=== PATIENT | female | born 1965 | race African-American/Black ===

== ENCOUNTER 2019-05-30 16:31 | Inpatient (IN) | payer BC ==
[2019-05-30 21:43] VITALS: BMI 28.3
--- NOTE | 2019-05-30 22:12 | HP ---
CIWA Score Nausea/Vomitin (w/ some cramping) Muscle Tremors: 4-Moderate,w/Arms Extend Anxiety: 1-Mildly Anxious Agitation: 1-Slight > Activity Paroxysmal Sweats: 3 (Increased facial moisture) Orientation: 0-Oriented Tacttile Disturbances: 0-None Auditory Disturbances: 0-None Visual Disturbances: 0-None Headache: 4-Moderately Severe CIWA-Ar Total Score: 16 - Admission Criteria OASAS Guidelines: Admission for Medically Managed Detox: Requires at least one of the followin. CIWA greater than 12 2. Seizures within the past 24 hours 3. Delirium tremens within the past 24 hours 4. Hallucinations within the past 24 hours 5. Acute intervention needed for co occurring medical disorder 6. Acute intervention needed for co occurring psychiatric disorder 7. Severe withdrawal that cannot be handled at a lower level of care (continued vomiting, continued diarrhea, abnormal vital signs) requiring intravenous medication and/or fluids 8. Patient presents the following: CIWA greater than 12 Admission Criteria Met: Admission criteria met Admission ROS [facility] Chief Complaint: " I'm having alcohol withdrawal" Allergies/Adverse Reactions: Allergies Allergy/AdvReac Type Severity Reaction Status Date / Time No Known Allergies Allergy Verified 05/30/19 21:19 History of Present Illness: 54 yo present with alcohol withdrawal symptoms seeking detox. UTox: +THC/+ANU Alcohol use began at age 15. Stopped for about 5 years and relapsed about 1 year ago. Currently drinking two 5ths/day. Cocaine/Crack use began at age [age]; Stopped for about 5 years and relapsed about 1 year ago. Last used 05/26/19. Marijuana use began at age 13. Stopped for about 5 years and relapsed about 1 year ago. Last used 05/26/19. Nicotine use began at age [age]. Currently smokes 5 + cig based on drug/alcohol use. Denies seizures or overdoses. Blackouts years ago. PMHx: Legally Blind r/t glaucoma; Asthma (last exacerbation 2 months ago), multiple heart attacks - on ASA. (no surgical cardiac hx); Frequent falls; Dry skin MHHx: Anxiety. Insomnia; Depression. Does not see a MH Provider. Not on MH meds. Denies thoughts of harming self or others Patient Name: Guadalupe Malone Date: 1965 Address: [address] [place] [address] Sex: Female Rx Written Rx Dispensed Drug Quantity Days Supply Prescriber Name 05/04/2019 05/05/2019 tramadol hcl 50 mg tablet 14 7 Yamileth Jenkins Search Terms: Guadalupe Malone, 1965 Search Date: 05/30/2019 10:11:50 PM States Searched: [place], [place], [place], [place], [place], [place], [place], [place] The Drug Utilization Report below displays the controlled substance prescriptions, if any, that were dispensed in the indicated state(s). The information displayed on this report is compiled from requests submitted to other states' PMPs, and accurately reflects the information as returned by them. Blank andrade indicate data not provided by other state. This report was requested by: Fernanda Payne | Reference #: [id number] Exam Limitations: No Limitations - Ebola screening Have you traveled outside of the country in the last 21 days: No (N) Have you had contact with anyone from an Ebola affected area: No Have you been sick,other than usual withdrawal symptoms: No (Denies recent exposure to measles) Do you have a fever: No - Review of Systems Constitutional: Chills, Diaphoresis, Changes in sleep (Difficulty falling asleep.) EENT: reports: Blurred Vision, Dental Problems (Dentures), Other (Legally blind both eyes r/t glaucoma. Able to see and get around on own.) Respiratory: reports: No Symptoms reported Cardiac: reports: No Symptoms Reported GI: reports: Nausea, Abdominal cramping : reports: No Symptoms Reported Musculoskeletal: reports: Back Pain (Chronic achy/sharp LBP. "8". Increases w/ standnig straight. Improves w/), Joint Pain (Both knees (R) > (L) r/t frequent falls) Integumentary: reports: Pruritus (Itchy, dry skin) Neuro: reports: Headache (Severe heahache - frontal), Tremors, Unsteady Gait Endocrine: reports: Increased Thirst Hematology: reports: No Symptoms Reported Psychiatric: reports: Judgement Intact, Orientated x3, Anxious, Depressed ( Denies thoughts of harming self or others) Patient History - Patient Medical History Hx Anemia: Yes Hx Asthma: Yes Hx Chronic Obstructive Pulmonary Disease (COPD): No Hx Cancer: No Hx Cardiac Disorders: No Hx Congestive Heart Failure: No Hx Hypertension: No Hx Hypercholesterolemia: Yes (VERY HIGH WAS ON LIPITOR) Hx Pacemaker: No HX Cerebrovascular Accident: No Hx Seizures: No Hx Dementia: No Hx Diabetes: No Hx Gastrointestinal Disorders: Yes (ON OMEPRAZOLE.) Hx Liver Disease: No Hx Genitourinary Disorders: No Hx Sexually Transmitted Disorders: Yes (SYPHYLLIS WAS TREATED YEARS AGO.) Hx Renal Disease (ESRD): No Hx Thyroid Disease: No Hx Human Immunodeficiency Virus (HIV): No Hx Hepatitis C: No Hx Depression: Yes Hx Suicide Attempt: No Hx Bipolar Disorder: No Hx Schizophrenia: No - Patient Surgical History Past Surgical History: Yes Hx Abdominal Surgery: (HYSTERECTOMY IN 2005) Hx Cholecystectomy: Yes (1999) Hx Hysterectomy: Yes (2005) Other Surgical History: TORSION OF FALLOPIAN TUBE Anesthesia Reaction: No - PPD History Previous Implant?: Yes Documented Results: Negative w/proof Implanted On Prior R Admission?: Yes PPD to be Administered?: Yes - Reproductive History Patient is a Female of Child Bearing Age (11 -55 yrs old): No - Smoking Cessation Smoking history: Current every day smoker Have you smoked in the past 12 months: Yes Aproximately how many cigarettes per day: 5 Hx Chewing Tobacco Use: No Initiated information on smoking cessation: Yes 'Breaking Loose' booklet given: 05/30/19 - Substance & Tx. History Hx Alcohol Use: Yes Hx Substance Use: Yes Substance Use Type: Alcohol, Cocaine, Marijuana Hx Substance Use Treatment: Yes (detox, rehab) - Substances abused Alcohol Substance route: Oral Frequency: Daily Amount used: 2-3 (1/5ths) a day Age of first use: 15 Date of last use: 05/29/19 Crack Substance route: Smoking Frequency: Daily Amount used: $200-300/day Age of first use: 16 Date of last use: 05/26/19 Cocaine Substance route: Smoking Frequency: 3-6 times per week Amount used: $200-300 Age of first use: 15 Date of last use: 05/26/19 Other Other (specify): percocet Substance route: Oral Frequency: Daily Amount used: 2 (10/325mg pill) Age of first use: 53 Date of last use: 04/29/19 Family Disease History - Family Disease History Family Disease History: Diabetes: Daughter, Heart Disease: Mother (HTN) Admission Physical Exam BHS - Vital Signs Vital Signs: Vital Signs - 24 hr 05/30/19 21:36 Temperature 98.2 F Pulse Rate 63 Respiratory 18 Rate Blood Pressure 164/98 - Physical General Appearance: Yes: Nourished, Mild Distress, Tremorous (Increased tremors of hands w/ arm elevation), Sweating (Increased facial moisture), Anxious HEENTM: Yes: EOMI, Hearing grossly Normal, Normocephalic, Normal Voice, Pharynx Normal, Other (Abnormally shaped pupils w/o reaction to light) Respiratory: Yes: Lungs Clear (O2 Sat = 99 %), Normal Breath Sounds, No Respiratory Distress Neck: Yes: No masses,lesions,Nodules, Supple Breast: Yes: Breast Exam Deferred Cardiology: Yes: Regular Rhythm, S1, S2, Bradycardia (HR: 58) Abdominal: Yes: Non Tender, Soft, Increased Bowel Sounds, Protuberent Genitourinary: Yes: Within Normal Limits Back: Yes: Normal Inspection Musculoskeletal: Yes: full range of Motion, Gait Steady Extremities: Yes: Normal Capillary Refill, Normal Range of Motion, Tremors ( Increased tremors of hands w/ arm elevation) Neurological: Yes: mixing machine feeder II-XII NML intact, Fully Oriented, Alert, Motor Strength 5/5, Normal Mood/Affect Integumentary: Yes: Normal Color, Dry (Dry skin, except for facial area), Warm, Diaphoresis (Increased facial moisture) Lymphatic: Yes: Within Normal Limits - Diagnostic (1) Alcohol dependence with uncomplicated withdrawal Current Visit: Yes Status: Acute (2) History of asthma Current Visit: Yes Status: Acute (3) Family history of blindness or visual loss Current Visit: Yes Status: Acute (4) Cannabis dependence, uncomplicated Current Visit: Yes Status: Acute (5) Nicotine dependence, uncomplicated Current Visit: Yes Status: Chronic Qualifiers: Nicotine product type: cigarettes Qualified Code(s): F17.210 - Nicotine dependence, cigarettes, uncomplicated (6) Cocaine dependence Current Visit: Yes Status: Chronic (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
[2019-05-30] MEDS ORDERED: MAGNESIUM CITRATE 300 ML BOTTLE PO PRN (23:00)
[2019-05-30] MEDS ORDERED: ACETAMINOPHEN 325 MG TABLET (FP) PO PRN ×2 (23:00)
[2019-05-30] MEDS ORDERED: MAGNESIUM HYDROX 2400MG/30ML ORAL SUSPENSION 30 ML CUP PO PRN (23:00)
[2019-05-30] MEDS ORDERED: IBUPROFEN 400 MG TABLET (FP) PO PRN (23:00)
[2019-05-30] MEDS ORDERED: BISMUTH SUBSALICYLATE 524 MG/30 ML UD PO PRN (23:00)
[2019-05-30] MEDS ORDERED: MENTHOL/PHENOL 1 EACH UD MM PRN (23:00)
[2019-05-30] MEDS ORDERED: AMMONIUM LACTATE 12% LOTION 225 GM BOTTLE TP PRN (23:03)
[2019-05-30] MEDS ORDERED: CYCLOBENZAPRINE HCL 10 MG TABLET (FP) PO PRN (23:08)
[2019-05-30] MEDS ORDERED: ALBUTEROL SO4 8 GM HFA INHALER IH PRN (23:09)
[2019-05-31] MEDS ORDERED: chlordiazePOXIDE HCL 25 MG CAPSULE PO ONE (00:35)
[2019-05-31] MEDS ORDERED: chlordiazePOXIDE HCL 10 MG CAPSULE PO PRN (00:35)
[2019-05-31] MEDS: chlordiazePOXIDE HCL 25 MG CAPSULE PO SCH ×3 (06:40→22:44)
[2019-05-31] MEDS: BRIMONIDINE TARTRATE 0.1% OPHTHALMIC 5 ML BOTTLE OU SCH ×3 (08:16→22:51)
[2019-05-31] MEDS: DORZOLAMIDE 2% HCL OPHTHALMIC SOLUTION 10 ML BOTTLE OU SCH ×3 (08:17→22:51)
[2019-05-31] MEDS: prednisoLONE ACETATE 1% OPHTH SUSP 5 ML BOTTLE OU SCH ×3 (10:31→18:20)
[2019-05-31] MEDS: PRENATAL VITAMINS W/ FOLIC ACID TABLET (FP) PO SCH (10:31)
[2019-05-31] MEDS: NICOTINE 14 MG/24 HOURS TOPICAL PATCH TD SCH (10:31)
[2019-05-31] MEDS: ASPIRIN 81 MG CHEWABLE TABLETS PO SCH (10:31)
[2019-05-31] MEDS: PANTOPRAZOLE 40 MG TABLET (FP) PO SCH (10:32)
[2019-05-31 10:57] LABS: HEMATOCRIT 38.5 % (32.4-45.2); HEMOGLOBIN 12.7 GM/dL (10.7-15.3); MCH 28.9 pg (25.7-33.7); MEAN CELL VOLUME 87.5 fl (80-96); MEAN PLT VOLUME 9.3 fl (7.5-11.1); PLATELET COUNT 225 K/MM3 (134-434); RDW 15.5 % (11.6-15.6); WHITE BLOOD COUNT 4.4 K/mm3 (4.0-10.0)
[2019-05-31 11:30] LABS: ALBUMIN 3.6 g/dl (3.4-5.0); BILIRUBIN,TOTAL 0.4 mg/dL (0.2-1); BLOOD UREA NITROGEN 14.2 mg/dL (7-18); CALCIUM 9.2 mg/dL (8.5-10.1); POTASSIUM 3.7 mmol/L (3.5-5.1); TOT PROT 7.1 g/dl (6.4-8.2)
--- NOTE | 2019-05-31 12:12 | PN ---
[facility] CIWA - CIWA Score Nausea/Vomitin-No Nausea/No Vomiting Muscle Tremors: 3 Anxiety: 2 Agitation: 3 Paroxysmal Sweats: 2 Orientation: 0-Oriented Tacttile Disturbances: 0-None Auditory Disturbances: 0-None Visual Disturbances: 0-None Headache: 0-None Present CIWA-Ar Total Score: 10 S Progress Note (SOAP) Subjective: sleepy sweats tired body aches Objective: 05/31/19 12:12 Vital Signs Temperature 97.9 F 05/31/19 09:40 Pulse Rate 73 05/31/19 09:40 Respiratory Rate 18 05/31/19 09:40 Blood Pressure 110/71 05/31/19 09:40 O2 Sat by Pulse Oximetry (%) Laboratory Tests 05/31/19 05/31/19 07:00 07:00 WBC 4.4 RBC 4.40 Hgb 12.7 Hct 38.5 MCV 87.5 MCH 28.9 MCHC 33.0 RDW 15.5 Plt Count 225 D MPV 9.3 Sodium 145 Potassium 3.7 Chloride 109 H Carbon Dioxide 30 Anion Gap 7 L BUN 14.2 Creatinine 1.0 Est GFR (CKD-EPI)AfAm 72.93 Est GFR (CKD-EPI)NonAf 62.93 Random Glucose 125 H Calcium 9.2 Total Bilirubin 0.4 AST 7 L ALT 14 Alkaline Phosphatase 91 Total Protein 7.1 Albumin 3.6 Laboratory Tests 05/31/19 05/31/19 05/31/19 07:00 07:00 07:00 WBC 4.4 RBC 4.40 Hgb 12.7 Hct 38.5 MCV 87.5 MCH 28.9 MCHC 33.0 RDW 15.5 Plt Count 225 D MPV 9.3 Sodium 145 Potassium 3.7 Chloride 109 H Carbon Dioxide 30 Anion Gap 7 L BUN 14.2 Creatinine 1.0 Est GFR (CKD-EPI)AfAm 72.93 Est GFR (CKD-EPI)NonAf 62.93 Random Glucose 125 H Calcium 9.2 Total Bilirubin 0.4 AST 7 L ALT 14 Alkaline Phosphatase 91 Total Protein 7.1 Albumin 3.6 RPR Titer Reactive 1:4 H D T.pallidum Ab (MHA) Previously reactive labs noted RPR reactive with 1:4 ratio noted aaox3 lying in bed no acute distress Assessment: 05/31/19 12:12 mild withdrawal sx spoke with pt regarding the RPR 1:4 ratio: pt states she received three injection tx most recently. Plan: continue detox increase fluids
[2019-05-31 12:18] LABS: RPR REACTIVE 1:4 (NONREACTIVE)
[2019-05-31 12:20] LABS: TREPONEMA ANTIBODY PREVIOUSLY REACTIVE (NONREACTIVE)
--- NOTE | 2019-05-31 15:49 | EKG ---
Test Reason : Blood Pressure : / mmHG Vent. Rate : 057 BPM Atrial Rate : 057 BPM P-R Int : 194 ms QRS Dur : 090 ms QT Int : 448 ms P-R-T Axes : 008 068 052 degrees QTc Int : 436 ms SINUS BRADYCARDIA OTHERWISE NORMAL ECG NO PREVIOUS ECGS AVAILABLE Confirmed by MD ALLEGRA, DANN ([id number]) on 05/31/2019 3:49:02 PM Referred By: Confirmed By:DANN DINH MD
[2019-05-31] MEDS: COLLOIDAL OATMEAL 1 BAR EACH TP PRN (16:34)
[2019-05-31] MEDS: MAG HYDROX/AL HYDROX/SIMETH 30 ML UNIT-DOSE CUP PO PRN (17:29)
[2019-05-31] MEDS ORDERED: PANTOPRAZOLE 40 MG TABLET (FP) PO ONE (19:00)
[2019-05-31] MEDS: THIAMINE HCL 100 MG TABLET (FP) PO SCH (22:44)
[2019-05-31] MEDS: MELATONIN 5 MG TABLETS PO PRN (22:46)
[2019-05-31] MEDS: ATORVASTATIN CA 20 MG TABLET (FP) PO SCH (22:47)
[2019-05-31] MEDS: LATANOPROST 0.005% OPHTH SOLN 2.5ML BOTTLE OU SCH (22:52)
[2019-06-01] MEDS: chlordiazePOXIDE 5 MG CAPSULE PO SCH ×3 (06:36→22:27)
[2019-06-01] MEDS: DORZOLAMIDE 2% HCL OPHTHALMIC SOLUTION 10 ML BOTTLE OU SCH ×3 (06:38→22:31)
[2019-06-01] MEDS: BRIMONIDINE TARTRATE 0.1% OPHTHALMIC 5 ML BOTTLE OU SCH ×3 (06:38→22:30)
[2019-06-01] MEDS: NICOTINE 14 MG/24 HOURS TOPICAL PATCH TD SCH (10:55)
[2019-06-01] MEDS: ASPIRIN 81 MG CHEWABLE TABLETS PO SCH (10:58)
[2019-06-01] MEDS: PRENATAL VITAMINS W/ FOLIC ACID TABLET (FP) PO SCH (10:58)
[2019-06-01] MEDS: PANTOPRAZOLE 40 MG TABLET (FP) PO SCH (10:59)
--- NOTE | 2019-06-01 11:25 | PN ---
S CIWA - CIWA Score Nausea/Vomitin-No Nausea/No Vomiting Muscle Tremors: 2 Anxiety: 2 Agitation: 2 Paroxysmal Sweats: 2 Orientation: 0-Oriented Tacttile Disturbances: 0-None Auditory Disturbances: 0-None Visual Disturbances: 0-None Headache: 0-None Present CIWA-Ar Total Score: 8 BHS Progress Note (SOAP) Subjective: sweats interrupted sleep body aches Objective: 06/01/19 11:24 Vital Signs Temperature 97.7 F 06/01/19 10:00 Pulse Rate 62 06/01/19 10:00 Respiratory Rate 16 06/01/19 10:00 Blood Pressure 124/77 06/01/19 10:00 O2 Sat by Pulse Oximetry (%) Laboratory Tests 05/31/19 05/31/19 05/31/19 07:00 07:00 07:00 WBC 4.4 RBC 4.40 Hgb 12.7 Hct 38.5 MCV 87.5 MCH 28.9 MCHC 33.0 RDW 15.5 Plt Count 225 D MPV 9.3 Sodium 145 Potassium 3.7 Chloride 109 H Carbon Dioxide 30 Anion Gap 7 L BUN 14.2 Creatinine 1.0 Est GFR (CKD-EPI)AfAm 72.93 Est GFR (CKD-EPI)NonAf 62.93 Random Glucose 125 H Calcium 9.2 Total Bilirubin 0.4 AST 7 L ALT 14 Alkaline Phosphatase 91 Total Protein 7.1 Albumin 3.6 RPR Titer Reactive 1:4 H D T.pallidum Ab (MHA) Previously reactive aaox3 ambulating no acute distress Assessment: 06/01/19 11:24 mild withdrawal sx Plan: continue detox increase fluids
[2019-06-01 13:57] LABS: EPI CELLS 11.6 /HPF (0-5/HPF); HYALINE CASTS 8 /lpf (0-8); URINE APPEARANCE CLEAR; URINE BILIRUBIN NEGATIVE (NEGATIVE); URINE COLOR YELLOW; URINE GLUCOSE (UA) NEGATIVE (NEGATIVE); URINE KETONE NEGATIVE (NEGATIVE); URINE LEUK ESTERASE 1+ (NEGATIVE); URINE NITRITE NEGATIVE (NEGATIVE); URINE PROTEIN NEGATIVE (NEGATIVE); URINE RBC 1 /hpf (0-4); URINE UROBILINOGEN 0.2 mg/dL (0.2-1.0); URINE WBC 12 /hpf (0-5)
[2019-06-01] MEDS ORDERED: PANTOPRAZOLE 40 MG TABLET (FP) PO ONE (18:00)
[2019-06-01] MEDS: MAG HYDROX/AL HYDROX/SIMETH 30 ML UNIT-DOSE CUP PO PRN (18:02)
[2019-06-01] MEDS: prednisoLONE ACETATE 1% OPHTH SUSP 5 ML BOTTLE OS SCH ×6 (18:03→22:32)
[2019-06-01] MEDS: ATORVASTATIN CA 20 MG TABLET (FP) PO SCH (22:27)
[2019-06-01] MEDS: MELATONIN 5 MG TABLETS PO PRN (22:27)
[2019-06-01] MEDS: THIAMINE HCL 100 MG TABLET (FP) PO SCH (22:27)
[2019-06-01] MEDS: LATANOPROST 0.005% OPHTH SOLN 2.5ML BOTTLE OU SCH (22:31)
[2019-06-02] MEDS ORDERED: chlordiazePOXIDE HCL 10 MG CAPSULE PO PRN
[2019-06-02] MEDS: chlordiazePOXIDE HCL 10 MG CAPSULE PO SCH ×3 (06:18→22:25)
[2019-06-02] MEDS: BRIMONIDINE TARTRATE 0.1% OPHTHALMIC 5 ML BOTTLE OU SCH ×3 (06:19→22:27)
[2019-06-02] MEDS: DORZOLAMIDE 2% HCL OPHTHALMIC SOLUTION 10 ML BOTTLE OU SCH ×3 (06:19→22:27)
[2019-06-02] MEDS: NICOTINE 14 MG/24 HOURS TOPICAL PATCH TD SCH (11:02)
[2019-06-02] MEDS: ASPIRIN 81 MG CHEWABLE TABLETS PO SCH (11:02)
[2019-06-02] MEDS: prednisoLONE ACETATE 1% OPHTH SUSP 5 ML BOTTLE OS SCH ×4 (11:02→22:27)
[2019-06-02] MEDS: PRENATAL VITAMINS W/ FOLIC ACID TABLET (FP) PO SCH (11:03)
[2019-06-02] MEDS: PANTOPRAZOLE 40 MG TABLET (FP) PO SCH (11:03)
--- NOTE | 2019-06-02 14:10 | PN ---
S CIWA - CIWA Score Nausea/Vomitin-No Nausea/No Vomiting Muscle Tremors: 2 Anxiety: 1-Mildly Anxious Agitation: 1-Slight > Activity Paroxysmal Sweats: 1-Minimal Palms Moist Orientation: 0-Oriented Tacttile Disturbances: 0-None Auditory Disturbances: 0-None Visual Disturbances: 0-None Headache: 0-None Present CIWA-Ar Total Score: 5 BHS Progress Note (SOAP) Subjective: headache Objective: 06/02/19 14:09 Vital Signs Temperature 98.1 F 06/02/19 13:42 Pulse Rate 74 06/02/19 13:42 Respiratory Rate 18 06/02/19 13:42 Blood Pressure 125/81 06/02/19 13:42 O2 Sat by Pulse Oximetry (%) aaox3 lying in bed no acute distress Assessment: 06/02/19 14:09 mild withdrawal Plan: continue detox increase fluids tylenol prn d/c in am
[2019-06-02] MEDS: COLLOIDAL OATMEAL 1 BAR EACH TP PRN (20:59)
[2019-06-02] MEDS: MELATONIN 5 MG TABLETS PO PRN (22:25)
[2019-06-02] MEDS: THIAMINE HCL 100 MG TABLET (FP) PO SCH (22:25)
[2019-06-02] MEDS: ATORVASTATIN CA 20 MG TABLET (FP) PO SCH (22:25)
[2019-06-02] MEDS: LATANOPROST 0.005% OPHTH SOLN 2.5ML BOTTLE OU SCH (22:28)
[2019-06-03] MEDS ORDERED: chlordiazePOXIDE HCL 10 MG CAPSULE PO ONE (05:00)
[2019-06-03] MEDS: BRIMONIDINE TARTRATE 0.1% OPHTHALMIC 5 ML BOTTLE OU SCH (06:33)
[2019-06-03] MEDS: DORZOLAMIDE 2% HCL OPHTHALMIC SOLUTION 10 ML BOTTLE OU SCH (06:34)
--- NOTE | 2019-06-03 08:56 | DS ---
[facility] Detox Discharge Summary Admission Date: 05/30/19 Discharge Date: 06/03/19 - History Present History: Alcohol Dependence, Cannabis Dependence, Cocaine Dependence - Physical Exam Results Vital Signs: Vital Signs Temperature 97.2 F L 06/03/19 08:40 Pulse Rate 57 L 06/03/19 08:40 Respiratory Rate 18 06/03/19 08:40 Blood Pressure 105/70 06/03/19 08:40 O2 Sat by Pulse Oximetry (%) Pertinent Admission Physical Exam Findings: pt arrived in withdrawals Laboratory Tests 05/31/19 05/31/19 05/31/19 07:00 07:00 07:00 WBC 4.4 RBC 4.40 Hgb 12.7 Hct 38.5 MCV 87.5 MCH 28.9 MCHC 33.0 RDW 15.5 Plt Count 225 D MPV 9.3 Sodium 145 Potassium 3.7 Chloride 109 H Carbon Dioxide 30 Anion Gap 7 L BUN 14.2 Creatinine 1.0 Est GFR (CKD-EPI)AfAm 72.93 Est GFR (CKD-EPI)NonAf 62.93 Random Glucose 125 H Calcium 9.2 Total Bilirubin 0.4 AST 7 L ALT 14 Alkaline Phosphatase 91 Total Protein 7.1 Albumin 3.6 Urine Color Urine Appearance Urine pH Ur Specific [place] Urine Protein Urine Glucose (UA) Urine Ketones Urine Blood Urine Nitrite Urine Bilirubin Urine Urobilinogen Ur Leukocyte Esterase Urine WBC (Auto) Urine RBC (Auto) Urine Casts (Auto) U Epithel Cells (Auto) U Sm Round Cell (Auto) Urine Bacteria (Auto) RPR Titer Reactive 1:4 H D T.pallidum Ab (MHA) Previously reactive TB (QFT) Incubation TB Test (QFT) Nil TB Test (QFT) Mitogen TB Test (QFT) Antigen TB Test (QFT) TB Positive Criteria 05/31/19 06/01/19 07:00 09:00 WBC RBC Hgb Hct MCV MCH MCHC RDW Plt Count MPV Sodium Potassium Chloride Carbon Dioxide Anion Gap BUN Creatinine Est GFR (CKD-EPI)AfAm Est GFR (CKD-EPI)NonAf Random Glucose Calcium Total Bilirubin AST ALT Alkaline Phosphatase Total Protein Albumin Urine Color Yellow Urine Appearance Clear Urine pH 6.0 Ur Specific [place] 1.020 Urine Protein Negative Urine Glucose (UA) Negative Urine Ketones Negative Urine Blood Negative Urine Nitrite Negative Urine Bilirubin Negative Urine Urobilinogen 0.2 Ur Leukocyte Esterase 1+ H Urine WBC (Auto) 12 Urine RBC (Auto) 1 Urine Casts (Auto) 8 U Epithel Cells (Auto) 11.6 U Sm Round Cell (Auto) None seen Urine Bacteria (Auto) 289.0 RPR Titer T.pallidum Ab (MHA) TB (QFT) Incubation TB Test (QFT) Nil 0.04 TB Test (QFT) Mitogen >10.00 TB Test (QFT) Antigen 0.05 TB Test (QFT) Negative TB Positive Criteria today pt is aaox3 ambulating no acute distress no s/s withdrawals - Treatment Hospital Course: Detox Protocol Followed, Detoxed Safely, Responded well, Discharged Condition Good, Rehab Referral Accepted Patient has Accepted a Rehab Referral to: referred to bharathi young - Medication Discharge Medications: Ambulatory Orders Aspirin [ASA -] 81 mg PO DAILY 08/22/13 Brimonidine Tartrate [Alphagan P 0.1% -] 1 drop OP TID 08/22/13 Dorzolamide HCl [Trusopt 2% -] 1 drop OU TID 08/22/13 Latanoprost 0.005% Eye Drops [Xalatan 0.005% Eye Drops -] 1 drop OP HS 08/22/13 traZODone HCL [Desyrel -] 150 mg PO HS #30 tablet 09/16/13 Albuterol Sulfate [Proair Hfa] 8.5 gm IH BID 05/30/19 Atorvastatin Ca [Lipitor] 20 mg PO HS 05/30/19 Cyclobenzaprine HCl 10 mg PO ASDIR 05/30/19 Naproxen 375 mg PO ASDIR 05/30/19 Omeprazole 40 mg PO DAILY 05/30/19 Prednisolone Acetate/Pf [Prednisolone Acet 1% Eye Drop] 5 ml OP QID 05/30/19 Tramadol HCl 50 mg PO PRN 05/30/19 - Diagnosis (1) Alcohol dependence with uncomplicated withdrawal Current Visit: Yes Status: Chronic (2) Bradycardia Current Visit: Yes Status: Chronic (3) Cannabis dependence, uncomplicated Current Visit: Yes Status: Chronic (4) Family history of blindness or visual loss Current Visit: Yes Status: Acute (5) History of asthma Current Visit: Yes Status: Acute (6) Cocaine dependence Current Visit: Yes Status: Chronic (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
[2019-06-03 10:17] VITALS: BP 129/86; PULSE 79; TEMP 97.3
[2019-06-03] MEDS: ASPIRIN 81 MG CHEWABLE TABLETS PO SCH (10:42)
[2019-06-03] MEDS: NICOTINE 14 MG/24 HOURS TOPICAL PATCH TD SCH (10:42)
[2019-06-03] MEDS: PRENATAL VITAMINS W/ FOLIC ACID TABLET (FP) PO SCH (10:42)
[2019-06-03] MEDS: PANTOPRAZOLE 40 MG TABLET (FP) PO SCH (10:42)
[2019-06-03] MEDS: prednisoLONE ACETATE 1% OPHTH SUSP 5 ML BOTTLE OS SCH (10:43)
== END 2019-06-03 13:14 | disposition home or self-care (01) | DRG 774 ==
LOC: YASAS 16:31 → Y6N 22:40
PROVIDERS: ADMIT Surgery; ATTEND Surgery
PROC: HZ2ZZZZ Detoxification Services for Substance Abuse Treatment (ICD-10-PCS; principal; 2019-05-30)
DX: F10.230 Alcohol dependence with withdrawal, uncomplicated (principal); F14.20 Cocaine dependence, uncomplicated; F12.20 Cannabis dependence, uncomplicated; F17.210 Nicotine dependence, cigarettes, uncomplicated; J45.909 Unspecified asthma, uncomplicated; H40.9 Unspecified glaucoma; R00.1 Bradycardia, unspecified; E78.00 Pure hypercholesterolemia, unspecified; Z87.42 Personal history of other diseases of the female genital tract
CPT/HCPCS: 36415; 80053; 81003; 81025; 85027; 86480; 86593; 86780; 93005; 93010